=== PATIENT | male | born 1990 | race Caucasian/White ===

== ENCOUNTER 2025-04-18 23:06 | Emergency (ER) | payer MEDICAID ==
[~2025-04-18] VITALS: Ht 182.9 cm; Wt 82.0 kg
[2025-04-18 23:08] VITALS: O2SAT 98
[2025-04-19 00:40] LABS: BASOPHILS % 0.6 % (0.0-2.0); EOSINOPHILS % 1.7 % (0.0-5.0); HEMATOCRIT. 38.2 % (42.0-52.0); HEMOGLOBIN. 13.3 g/dL (14.0-18.0); LYMPHOCYTES % 26.1 % (20.0-50.0); MEAN PLATELET VOLUME 8.1 fl (7.4-10.4); MONOCYTES % 10.6 % (2.0-8.0); NEUTROPHILS % 61.0 % (40.0-76.0); PLATELET 218 x1000/uL (130-400); RED BLOOD CELL COUNT 4.14 mill/uL (4.7-6.1); RED CELL DISTRIBUTION WIDTH 12.9 % (11.6-14.6)
[2025-04-19 00:46] LABS: CREATININE 1.1 mg/dL (0.6-1.3); UREA NITROGEN BLOOD 17 mg/dL (9-23)
[2025-04-19 00:58] LABS: TROPONIN I HIGH SENSITIVITY < 4 ng/L (3.0-53)
[2025-04-19] MEDS ORDERED: IBUP-2029 MT (01:11)
[2025-04-19 01:23] LABS: INFLUENZA TYPE A Presumptive Negative (Pres. Neg.)
[2025-04-19 01:24] LABS: INFLUENZA TYPE B Presumptive Negative (Pres. Neg.)
[2025-04-19 01:25] LABS: RESPIRATORY SYNCYTIAL VIRUS Not Detected (Not Detectd)
[2025-04-19 01:28] VITALS: BP 126/69; PULSE 53; RESP 15; TEMP 36.6; O2SAT 100
== END 2025-04-19 01:33 | disposition home or self-care (01) ==
LOC: ER 23:06
DX: R07.89 Other chest pain (principal); B34.9 Viral infection, unspecified; Z20.822 Contact with and (suspected) exposure to COVID-19
CPT/HCPCS: 36415; 71045; 80048; 84484; 85025; 87420; 87426; 87804; 93005; 99285